=== PATIENT | male | born 1995 ===

== ENCOUNTER 2021-11-24 05:05 | Emergency (ER) | payer SELFPAY ==
[2021-11-24] MEDS ORDERED: IBUPROFEN 800 MG TAB PO STA (07:48)
[2021-11-24] MEDS ORDERED: ACETAMINOPHEN 500 MG TAB PO STA (07:48)
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
[2021-11-24 08:21] VITALS: BP 124/88
== END 2021-11-24 08:21 | disposition home or self-care (01) ==
LOC: ED 05:05
DX: M25.572 Pain in left ankle and joints of left foot (principal); V89.2XXA Person injured in unspecified motor-vehicle accident, traffic, initial encounter; Y93.89 Activity, other specified; Y92.89 Other specified places as the place of occurrence of the external cause; Y99.8 Other external cause status
CPT/HCPCS: 99282